=== PATIENT | female | born 1970 | race Caucasian/White ===

== ENCOUNTER 2017-11-15 08:46 | Emergency (ER) | payer MEDICAID ==
[~2017-11-15] VITALS: Ht 154.9 cm; Wt 78.9 kg
[2017-11-15 09:07] VITALS: Ht 154.9 cm; Wt 78.9 kg
[2017-11-15 11:16] VITALS: BP 140/78
== END 2017-11-15 11:16 | disposition home or self-care (01) ==
LOC: ED 08:46
DX: S46.911A Strain of unspecified muscle, fascia and tendon at shoulder and upper arm level, right arm, initial encounter (principal); S66.811A Strain of other specified muscles, fascia and tendons at wrist and hand level, right hand, initial encounter; I10 Essential (primary) hypertension; E11.9 Type 2 diabetes mellitus without complications; Z88.0 Allergy status to penicillin; X58.XXXA Exposure to other specified factors, initial encounter; Y93.89 Activity, other specified; Y92.89 Other specified places as the place of occurrence of the external cause; Y99.8 Other external cause status
CPT/HCPCS: Q0092